=== PATIENT | male | born 1970 | race Caucasian/White ===

== ENCOUNTER 2017-02-13 17:40 | Emergency (ER) | payer OTHER ==
[~2017-02-13] VITALS: Ht 165.1 cm; Wt 113.5 kg
[~2017-02-13 17:40] MED LIST: EFFSR75 PO; NERVE MED PO; SIMV10TA2 PO; SNG10 PO
[2017-02-13 17:45] VITALS: TEMP 36.7; Ht 165.1 cm; Wt 113.5 kg
[2017-02-13] MEDS ORDERED: IBUPROFEN 800 MG TAB PO STA (17:58)
[2017-02-13] MEDS ORDERED: OXYCODONE HCL IR 5 MG TAB (IMMEDIATE RELEASE) PO STA (17:58)
[2017-02-13] MEDS ORDERED: ACETAMINOPHEN 500 MG TAB PO STA (17:58)
--- NOTE | 2017-02-13 18:07 | EMERGENCY ROOM VISIT NOTE ---
History Report prepared by Jonathan: Bayron Chavarria Under the Supervision of: Dr. Sidney Hernandez M.D. First contact with patient: 17:50 Chief Complaint: CALF PAIN Stated Complaint: LEFT CALF INJURY History of Present Illness The patient is a 46 year old male who presents to the Emergency Room with complaints of constant left calf pain beginning an hour ago. The patient states that he went to run today, when he suddenly began to feel pain in his left calf. He notes that his pain feels like "someone hit him in the left calf with a golf ball" and believes that something might have "snapped." He reports that he cannot pull his left foot back or put pressure on it. He denies any knee pain , leg swelling, and being on blood thinners. The patient states that he did not take any medication for his symptoms prior to his visit. He rates his pain a 10/ 10. Source of History: patient Onset: an hour ago Position: leg (left calf) Symptom Intensity: 10/10 Quality: other (He feels like "someone hit him in the calf with a golf ball ") Modifying Factors (Worsening): other (walking and pressure) Note: He denies any left knee pain and edema. Review of Systems See HPI for pertinent positives & negatives. A total of 6 systems reviewed and were otherwise negative. Past Medical & Surgical Medical Problems: (1) Abdominal pain (2) Asthma (3) Cholecystectomy (4) Dyslipidemia (5) Migraine (6) Mild major depression, single episode (7) Shoulder joint pain Family History No pertinent family history stated. Social History Smoking Status: Never Smoker Marital Status: Housing Status: lives with family Occupation Status: employed Current/Historical Medications Scheduled Montelukast Sodium (Singulair), 10 MG PO HS Propranolol Hcl (Propranolol ER), 60 MG PO HS Simvastatin (Zocor), 10 MG PO QPM Venlafaxine Hcl (Venlafaxine Extended Rel), 75 MG PO DAILY Scheduled PRN Oxycodone Ir (Roxicodone Ir), 1-2 TAB PO Q4H PRN for Pain Allergies Coded Allergies: No Known Allergies (Unverified , 10/10/15) Physical Exam Vital Signs Date Time Temp Pulse Resp B/P (MAP) Pulse Ox O2 Delivery O2 Flow Rate FiO2 02/13/17 19:32 62 127/77 95 Room Air 02/13/17 17:45 36.7 84 16 124/75 96 Room Air Physical Exam GENERAL: Currently lying on stretcher, in no obvious distress. NEURO: Awake and alert, oriented x3, no focal neuro deficits. EXTREMITIES: Strong distal left leg pedal pulses, no cellulitis, sensation intact distally to left foot, left calf is tender primarily along proximal aspect close to knee, calf is swollen compared to the opposite site, left knee is nontender, left ankle is nontender, left Achilles tendon is intact. Medical Decision & Procedures ER Provider Diagnostic Interpretation: Radiology results as stated below per my review and radiologist interpretation: L TIBIA/FIBULA 2 VIEWS ROUTINE FINDINGS: No fracture or dislocation. Soft tissues are unremarkable. Small plantar heel spur. IMPRESSION: No fracture or dislocation within the left lower leg. Electronically signed by: Dipesh Yates M.D. 02/13/2017 6:20 PM LEFT LOWER LEG ULTRASOUND FINDINGS: Real-time sonographic imaging of the left calf was performed. No sonographic abnormality. No fluid collections or hematoma identified. IMPRESSION: No sonographic abnormality within the left calf. Electronically signed by: Dipesh Yates M.D. 02/13/2017 8:17 PM Medications Administered Medications (Trade) Dose Ordered Sig/[place] Route Start Time Stop Time Status Last Admin Dose Admin Ibuprofen (Motrin Tab) 800 mg NOW STAT PO 02/13/17 17:58 02/13/17 18:01 DC 02/13/17 18:06 800 MG Acetaminophen (Tylenol Tab) 1,000 mg NOW STAT PO 02/13/17 17:58 02/13/17 18:01 DC 02/13/17 18:06 1,000 MG Oxycodone HCl (Roxicodone Immediate Rel Tab) 5 mg NOW STAT PO 02/13/17 17:58 02/13/17 18:01 DC 02/13/17 18:07 5 MG Oxycodone HCl (Roxicodone Immediate Rel 5MG Home Pack) 1 homepack UD ONCE PO 02/13/17 20:30 02/13/17 20:31 DC 02/13/17 20:37 1 HOMEPACK ED Course 1750: The patient was evaluated in room B5. A complete history and physical exam was performed. 1757: Oxycodone HCl 5mg PO, Acetaminophen 1000mg PO, Ibuprofen 800mg PO 2021: I did a PDMP search on the patient. There are no issues. 2028: I reevaluated and updated the patient. 2029: Oxycodone HCl 1 homepack PO 2042: Reevaluated the patient. Discussed results and discharge instructions: He verbalized understanding and agreement. The patient is ready for discharge. Medical Decision Differential diagnoses include: hematoma, muscle tear, fracture, Achilles tendon tear, neurovascular compromise, and compartment syndrome. The patient presents with severe left calf pain. The pain started as he went to start running. On exam, his proximal calf was exquisitely tender. No muscle step-off felt. He had no anterior knee pain, no pain to the distal calf or Achilles. He was neurovascularly intact distally. Films of the left tib- fib did not show evidence for fracture. Ultrasound of the left calf did not show any large hematoma. The ultrasound was read as normal. Patient received oral Motrin, oral Tylenol and oral oxycodone. He was given an ice pack. He did have a left posterior leg and foot splint applied. He was given crutches. He is being discharged to follow with orthopedics. He likely has torn a muscle in the calf or gastrocnemius. Medication Reconcilliation Current Medication List: was personally reviewed by me Blood Pressure Screening Patient's blood pressure: Normal blood pressure Blood pressure disposition: Did not require urgent referral Impression Primary Impression: Pain of left calf Scribe Attestation The scribe's documentation has been prepared under my direction and personally reviewed by me in its entirety. I confirm that the note above accurately reflects all work, treatment, procedures, and medical decision making performed by me. Departure Information Dispostion Home / Self-Care Prescriptions Oxycodone Ir (Roxicodone Ir) 5 Mg Tab 1-2 TAB PO Q4H Y for Pain, #10 TAB Prov: Sidney Hernandez M.D. 02/13/17 Referrals No Doctor, Assigned (PCP) Forms HOME CARE DOCUMENTATION FORM, IMPORTANT VISIT INFORMATION Patient Instructions My [facility] Additional Instructions call and set up orthopedic appt--call tomorrow wear the splint and use crutches do not bear weight with that leg motrin 600 mg 3x per day for 5 days elevation and ice oxy ir 1-2 tab every 4 hours for severe pain return for worsening symptoms or numbness to the foot/toes
--- NOTE | 2017-02-13 18:22 | DIAGNOSTIC IMAGING REPORT ---
L TIBIA/FIBULA 2 VIEWS ROUTINE CLINICAL HISTORY: Left lower leg pain, poss fracture COMPARISON STUDY: None. FINDINGS: No fracture or dislocation. Soft tissues are unremarkable. Small plantar heel spur. IMPRESSION: No fracture or dislocation within the left lower leg. Electronically signed by: Dipesh Yates M.D. 02/13/2017 6:20 PM Dictated Date/Time: 02/13/2017 6:19 PM
[2017-02-13] MEDS ORDERED: MONT1TAB3 PO (18:40)
[2017-02-13] MEDS ORDERED: VENL75CA73 PO (18:40)
[2017-02-13] MEDS ORDERED: PROP1TAB PO (18:41)
[2017-02-13] MEDS ORDERED: INDSR/60 PO (18:42)
--- NOTE | 2017-02-13 20:19 | DIAGNOSTIC IMAGING REPORT ---
LEFT LOWER LEG ULTRASOUND CLINICAL HISTORY: poss hematoma or muscle tear to calf. Left calf pain. COMPARISON STUDY: None. FINDINGS: Real-time sonographic imaging of the left calf was performed. No sonographic abnormality. No fluid collections or hematoma identified. IMPRESSION: No sonographic abnormality within the left calf. Electronically signed by: Dipesh Yates M.D. 02/13/2017 8:17 PM Dictated Date/Time: 02/13/2017 8:17 PM
[2017-02-13] MEDS ORDERED: OXYCODONE IR HOME PACK PO ONE (20:30)
[2017-02-13] MEDS ORDERED: OXYC1TAB3 PO (20:44)
[2017-02-13 21:23] VITALS: BP 115/59; PULSE 63; O2SAT 97
== END 2017-02-13 21:24 | disposition home or self-care (01) ==
LOC: C.EDB 17:40
DX: M79.662 Pain in left lower leg (principal); J45.909 Unspecified asthma, uncomplicated; E78.5 Hyperlipidemia, unspecified; G43.909 Migraine, unspecified, not intractable, without status migrainosus; F32.9 Major depressive disorder, single episode, unspecified; Z79.899 Other long term (current) drug therapy